=== PATIENT | female | born 1960 | race Caucasian/White ===

== ENCOUNTER 2023-02-05 10:33 | Day surgery (SDC) | payer BC ==
[2023-01-26 10:54] LABS: BASOPHILS # (AUTO) 0.2 X10'3 (0-0.2); BASOPHILS % (AUTO) 1.9 % (0-1); EOSINOPHILS # (AUTO) 0.2 X10'3 (0-0.9); EOSINOPHILS % (AUTO) 2.5 % (0-6); LYMPHOCYTES # (AUTO) 2.3 X10'3 (1.1-4.8); LYMPHOCYTES % (AUTO) 25.5 % (21-51); MEAN CORPUSCULAR HEMOGLOBIN 29.4 PG (27.0-31.0); MEAN CORPUSCULAR HGB CONC 33.5 g/dL (33.0-36.5); MEAN CORPUSCULAR VOLUME 87.6 FL (78-98); MEAN PLATELET VOLUME 8.2 FL (7.4-10.4); MONOCYTES # (AUTO) 0.7 X10'3 (0-0.9); MONOCYTES % (AUTO) 8.2 % (2-12); NEUTROPHILS # (AUTO) 5.6 X10'3 (1.8-7.7); NEUTROPHILS % (AUTO) 61.9 % (42-75); PRE OP HEMATOCRIT 40.7 % (35.0-45.0); PRE OP HEMOGLOBIN 13.6 g/dL (12.0-16.0); PRE OP PLATELET COUNT 415 X10'3 (140-440); RED BLOOD COUNT 4.65 X10'6 (4.20-5.60); RED CELL DISTRIBUTION WIDTH 14.4 % (11.5-14.5)
[2023-01-26 11:03] LABS: PRE OP PROTIME 10.7 SECONDS (9.0-12.0)
[2023-01-26 11:09] LABS: ALBUMIN 4.1 G/DL (3.4-5.0); ALBUMIN/GLOBULIN RATIO 1.1 (1.1-1.5); ALKALINE PHOSPHATASE 69 IU/L (46-116); BLOOD UREA NITROGEN 22 MG/DL (7-18); BUN/CREATININE RATIO 24.4 (10.0-20.0); CALCIUM 9.9 MG/DL (8.5-10.1); CHLORIDE 100 MMOL/L (99-107); PRE OP ALT 23 U/L (30-65); PRE OP ANION GAP 11 (8-16); PRE OP AST 21 U/L (10-37); PRE OP BILIRUB, TOTAL 0.6 MG/DL (0.0-1.0); PRE OP GLUCOSE 113 MG/DL (70-104); PRE OP SODIUM 138 MMOL/L (135-145); TOTAL CARBON DIOXIDE 27.3 MMOL/L (24-32); TOTAL PROTEIN 7.9 G/DL (6.4-8.2); eGFR 63 ML/MIN
[2023-01-26 11:46] LABS: PRE OP POTASSIUM 3.2 MMOL/L (3.4-5.1)
[2023-02-05] VITALS (9 sets, daily range): BP systolic 118–151; BP diastolic 65–83
[~2023-02-05] VITALS: Ht 177.8 cm; Wt 88.5 kg
[~2023-02-05 10:33] MED LIST: ALLO100T PO; AMLO5TAB16 PO; ASPI81TA52 PO; ATOR10TA70 PO; CO Q10; ESTR1PAT93 TOP; ESTR1PAT96 TOP; INDO-12 PO; IRON; JUICE PLUS; LOSA1TAB39 PO; MACU HEALTH; MAXI TEARS; OMEP20CA16 PO; VALA100031 PO; [UNRECOGNIZED DRUG - OTHER]; cefazolin 2gm/D5W 100mL 100 ML IV ONE; famotidine 20mg tablet PO ONE; ringers solution, lacted 1,000 ML IV SCH
[2023-02-05] MEDS ORDERED: midazolam 1 mg/ML 2ml injection ONE (11:37)
[2023-02-05] MEDS ORDERED: fentaNYL/PF 50MCG/1 ML 2ML syringe ONE ×2 (11:37→13:22)
[2023-02-05] MEDS ORDERED: propofol inj 20 ML IV ONE (11:38)
[2023-02-05] MEDS ORDERED: LIDOcaine 2% (20mg/ml) 5ml vial ONE (11:38)
[2023-02-05] MEDS ORDERED: dexamethasone sod phosphate 4mg/ml inj. ONE (11:38)
[2023-02-05] MEDS ORDERED: ondansetron/PF 4mg/2ml inj ONE (11:38)
[2023-02-05 12:07] LABS: ALBUMIN 3.6 G/DL (3.4-5.0); ALKALINE PHOSPHATASE 64 IU/L (46-116); BLOOD UREA NITROGEN 16 MG/DL (7-18); BUN/CREATININE RATIO 21.1 (10.0-20.0); CHLORIDE 101 MMOL/L (99-107); CREATININE 0.76 MG/DL (0.40-0.90); PRE OP ALT 26 U/L (30-65); PRE OP ANION GAP 17 (8-16); PRE OP AST 24 U/L (10-37); PRE OP BILIRUB, TOTAL 0.3 MG/DL (0.0-1.0); PRE OP GLUCOSE 97 MG/DL (70-104); PRE OP POTASSIUM 3.4 MMOL/L (3.4-5.1); PRE OP SODIUM 140 MMOL/L (135-145); TOTAL CARBON DIOXIDE 22.5 MMOL/L (24-32); TOTAL PROTEIN 7.2 G/DL (6.4-8.2); eGFR 77 ML/MIN
[2023-02-05] MEDS ORDERED: BUPIVAcaine/PF 2.5 mg/ml (0.25%) 30ml vial ONE (12:11)
[2023-02-05] MEDS ORDERED: ringers solution, lacted 1,000 ML IV SCH (12:20)
[2023-02-05] MEDS ORDERED: morphine 4 MG/ML inj SYRINge IV PRN (12:20)
[2023-02-05] MEDS ORDERED: morphine 2 MG/ML inj. syringe IV PRN (12:20)
[2023-02-05] MEDS ORDERED: meperidine/PF 25mg/ml syringe IV PRN ×3 (12:20)
[2023-02-05] MEDS ORDERED: proCHLORperazine 10 MG/2 ml inj IV PRN (12:20)
[2023-02-05] MEDS ORDERED: ondansetron/PF 4mg/2ml inj IV PRN (12:20)
[2023-02-05] MEDS ORDERED: sevoflurane 250ml liquid IH ONE (12:56)
[2023-02-05] MEDS ORDERED: glycopyrrolate 0.2mg/ml inj ONE (13:39)
[2023-02-05] MEDS ORDERED: rocuronium 10mg/ml inj IV ONE (13:39)
[2023-02-05] MEDS ORDERED: neostigmine methylsulfate 1 MG/ML 10ml vial ONE (13:39)
[2023-02-05] MEDS ORDERED: meperidine/PF 25mg/ml syringe ONE (13:50)
--- NOTE | 2023-02-05 13:55 | NUR ---
Received from OR via [facility], accompanied by Anesthesiologist DR ARIZA and report given by Anesthesiolgist. PT PLACED ON 02 AND MONITOR, S/P RIGHT BREAST SEGMENTAL MASTECTOMY, GENERAL ANESTH, DR JOHNSON PLACED A LOCAL ANESTHETIC TO SURGICAL AREA, GOOD RADIAL PULSES BILAT, STATES HAS A "LITTLE PAIN" IN RIGHT BREAST, DENIES ANY NAUSEA, WILL ADMINISTER PAIN MEDS NEEDED AND CONTINUE TO ASSESS.
== END 2023-02-05 15:15 | disposition home or self-care (01) ==
LOC: PAS 10:33
PROVIDERS: ATTEND Surgery
DX: R92.8 Other abnormal and inconclusive findings on diagnostic imaging of breast (principal); N60.11 Diffuse cystic mastopathy of right breast; I10 Essential (primary) hypertension; K21.9 Gastro-esophageal reflux disease without esophagitis; M10.9 Gout, unspecified; Z90.710 Acquired absence of both cervix and uterus; Z90.721 Acquired absence of ovaries, unilateral; F12.90 Cannabis use, unspecified, uncomplicated; Z87.891 Personal history of nicotine dependence; Z72.89 Other problems related to lifestyle; Z79.899 Other long term (current) drug therapy; Z79.82 Long term (current) use of aspirin; Z98.890 Other specified postprocedural states; Z79.01 Long term (current) use of anticoagulants
CPT/HCPCS: 19301; 36415; 76098; 80053; 82948; 85025; 85610; 85730; 93005; J0690; J1100; J2175; J2250; J2405; J2704; J2710; J3010; J3490; J7030; J7120; Z7506; Z7512; A4215; A4618; A6449; A7000